=== PATIENT | female | born 1960 | race Caucasian/White ===

== ENCOUNTER 2022-01-24 23:21 | Observation (INO) | payer BC ==
[2022-01-25] MEDS ORDERED: Acetaminophen 650 MG Suppository PR PRN (01:11)
[2022-01-25] MEDS ORDERED: Acetaminophen 325 MG TAB PO PRN (01:11)
[2022-01-25] MEDS ORDERED: Ondansetron PF 4 MG/2 ML Vial IVP PRN (01:11)
[2022-01-25] MEDS ORDERED: Ondansetron ODT 4 MG TAB PO PRN (01:11)
[2022-01-25 02:05] LABS: Troponin I 0.255 ng/mL (< 0.028)
[2022-01-25] MEDS ORDERED: Enoxaparin Sodium 100 MG/ML SYRINGE ONE (02:31)
[2022-01-25] MEDS: Enoxaparin Sodium 100 MG/ML SYRINGE SC SCH ×2 (03:05→17:07)
[2022-01-25] MEDS ORDERED: Azithromycin 500 MG VIAL ONE (05:42)
[2022-01-25] MEDS: Azithromycin 500 MG in Sodium Chloride 0.9% 250 ML 250 ML IVPB SCH (05:49)
[2022-01-25 06:32] LABS: #Eosinphils 0.2 thou/uL (0.0-0.7); #Monocytes 0.9 thou/uL (0.11-0.59); #Neutrophils 7.1 thou/uL (1.40-6.50); %Basophils 0.2 % (0.0-1.0); %Eosinophils 1.5 % (0.0-10.0); %Lymphocytes 26.9 % (21.0-51.0); %Neutrophils 63.4 % (42.0-75.0); Hemoglobin 13.1 g/dL (12.0-16.0); Mean Corpuscular HGB CONC 32.6 g/dL (32.0-36.0); Mean Corpuscular Hemoglobin 30.2 pg (27.0-31.0); Mean Corpuscular Volume 92.8 fl (78.0-98.0); Mean Platelet Volume 6.9 fL (7.4-10.4); Platelet Count 268 10x3/uL (130-400); RBC Distribution Width 11.6 % (11.5-14.5); Red Blood Cell (RBC) Count 4.34 mill/uL (4.20-5.40); White Blood Cell (WBC) Count 11.2 10x3/uL (4.8-10.8)
[2022-01-25 06:44] LABS: Anion Gap 11 mmol/L (10-20); BUN (Urea Nitrogen) 22 mg/dL (9.8-20.1); Calc. Creatinine Clearance 129 mL/min (70-130); Calcium 8.7 mg/dL (7.8-10.44); Carbon Dioxide 24 mmol/L (22-29); Chloride 106 mmol/L (98-107); Estimated GFR 97; Glucose 96 mg/dL (70-105); Potassium 3.6 mmol/L (3.5-5.1); Sodium 137 mmol/L (136-145)
[2022-01-25 06:53] LABS: Troponin I 0.302 ng/mL (< 0.028)
[2022-01-25] MEDS ORDERED: Aspirin Chewable 81 MG TAB ONE (08:11)
[2022-01-25] MEDS ORDERED: methylPREDNISolone Sod Succ 40 MG VIAL ONE (08:11)
[2022-01-25] MEDS: methylPREDNISolone Sod Succ 40 MG VIAL IVP SCH (08:39)
[2022-01-25] MEDS: Aspirin 81 mg Enteric Coated Tablet PO SCH (08:39)
[2022-01-25 10:58] VITALS: BMI 34.4
[2022-01-25] MEDS ORDERED: FLU VACC QS2022-23(6MOS UP)/PF 60 MCG/0.5 ML SYRINGE IM ONE (12:00)
[2022-01-25] MEDS ORDERED: Potassium Chloride 20 MEQ TAB PO SCH (18:15)
[2022-01-25 18:44] LABS: Cardiac Risk 4.1 (Less than 4.5)
[2022-01-25] MEDS: Diltiazem HCl SR 60 mg Capsule PO SCH (21:28)
[2022-01-25] MEDS ORDERED: Melatonin 3 MG TAB PO PRN (23:51)
[2022-01-26 05:12] LABS: Anion Gap 14 mmol/L (10-20); BUN (Urea Nitrogen) 13 mg/dL (9.8-20.1); Calc. Creatinine Clearance 134 mL/min (70-130); Calcium 9.2 mg/dL (7.8-10.44); Carbon Dioxide 25 mmol/L (22-29); Chloride 104 mmol/L (98-107); Estimated GFR 99; Glucose 117 mg/dL (70-105); Potassium 4.3 mmol/L (3.5-5.1); Sodium 139 mmol/L (136-145)
[2022-01-26] MEDS: Azithromycin 500 MG in Sodium Chloride 0.9% 250 ML 250 ML IVPB SCH (06:16)
[2022-01-26] MEDS: Diltiazem HCl SR 60 mg Capsule PO SCH (08:59)
[2022-01-26] MEDS: Aspirin 81 mg Enteric Coated Tablet PO SCH (08:59)
[2022-01-26] MEDS: methylPREDNISolone Sod Succ 40 MG VIAL IVP SCH (08:59)
[2022-01-26 14:28] VITALS: BP 129/76; TEMP 98.3
== END 2022-01-26 14:30 | disposition home or self-care (01) ==
LOC: ERS 23:21 → 2NO 01-25 00:10 → ERHOLD 01-25 00:58 → 2NO 01-25 10:34
PROVIDERS: ADMIT Internal Medicine; ATTEND Internal Medicine
DX: I47.1 Supraventricular tachycardia (principal); J44.1 Chronic obstructive pulmonary disease with (acute) exacerbation; R07.89 Other chest pain; R77.8 Other specified abnormalities of plasma proteins; E87.6 Hypokalemia; E78.1 Pure hyperglyceridemia; Z79.52 Long term (current) use of systemic steroids; Z79.899 Other long term (current) drug therapy
CPT/HCPCS: 36415; 80048; 80061; 83735; 84484; 85025; 93306; 96372; 96374; 96375; 96376; G0378; J0456; J1650; J2920; J7050

== ENCOUNTER 2022-02-02 16:35 | Observation (INO) | payer BC ==
[2022-02-02] MEDS ORDERED: Ondansetron ODT 4 MG TAB PO PRN (18:29)
[2022-02-02] MEDS ORDERED: Acetaminophen 325 MG TAB PO PRN (18:29)
[2022-02-02 19:13] VITALS: BMI 33.8
[2022-02-02 20:09] LABS: Troponin I 0.459 ng/mL (< 0.028)
[2022-02-02] MEDS ORDERED: Albuterol Sulfate 2.5 mg/3 ml Neb NEB PRN (21:51)
[2022-02-02] MEDS ORDERED: Diltiazem HCl SR 60 mg Capsule PO SCH (22:30)
[2022-02-03 05:05] LABS: #Eosinphils 0.3 thou/uL (0.0-0.7); #Lymphocytes 3.2 thou/uL (1.20-3.40); #Monocytes 0.8 thou/uL (0.11-0.59); #Neutrophils 8.3 thou/uL (1.40-6.50); %Basophils 0.2 % (0.0-1.0); %Eosinophils 2.3 % (0.0-10.0); %Lymphocytes 25.3 % (21.0-51.0); %Monocytes 6.6 % (0.0-10.0); %Neutrophils 65.5 % (42.0-75.0); Hemoglobin 14.9 g/dL (12.0-16.0); Mean Corpuscular HGB CONC 32.2 g/dL (32.0-36.0); Mean Corpuscular Hemoglobin 30.6 pg (27.0-31.0); Mean Corpuscular Volume 94.9 fl (78.0-98.0); Mean Platelet Volume 6.8 fL (7.4-10.4); Platelet Count 251 10x3/uL (130-400); RBC Distribution Width 11.7 % (11.5-14.5); Red Blood Cell (RBC) Count 4.88 mill/uL (4.20-5.40); White Blood Cell (WBC) Count 12.7 10x3/uL (4.8-10.8)
[2022-02-03 05:25] LABS: ALT (SGPT) 21 U/L (8-55); AST (SGOT) 13 U/L (5-34); Albumin 3.7 g/dL (3.5-5.0); Alkaline Phosphatase 110 U/L (40-110); Anion Gap 11 mmol/L (10-20); BUN (Urea Nitrogen) 23 mg/dL (9.8-20.1); Bilirubin, Total 0.3 mg/dL (0.2-1.2); Calc. Creatinine Clearance 123 mL/min (70-130); Calcium 8.7 mg/dL (7.8-10.44); Carbon Dioxide 22 mmol/L (22-29); Chloride 107 mmol/L (98-107); Estimated GFR 91; Globulin 2.5 g/dL (2.4-3.5); Glucose 129 mg/dL (70-105); Potassium 4.2 mmol/L (3.5-5.1); Protein, Total 6.2 g/dL (6.0-8.3); Sodium 136 mmol/L (136-145)
[2022-02-03] MEDS ORDERED: Mometasone 100 MCG/PUFF (1 INHALER) INH SCH (06:30)
[2022-02-03] MEDS: Mometasone 200 MCG/Formoterol 5 MCG 120 PUFF INHALER INH SCH ×2 (07:56→18:41)
[2022-02-03] MEDS ORDERED: FLU VACC QS2022-23(6MOS UP)/PF 60 MCG/0.5 ML SYRINGE IM ONE (09:00)
[2022-02-03] MEDS ORDERED: Diltiazem HCl SR 60 mg Capsule PO SCH ×2 (09:00)
[2022-02-03 09:56] LABS: Magnesium 2.1 mg/dL (1.6-2.6)
[2022-02-03] MEDS: Acyclovir 400 mg Tablet PO SCH (10:31)
[2022-02-03] MEDS: Aspirin 81 mg Enteric Coated Tablet PO SCH (10:31)
[2022-02-03] MEDS: Cholecalciferol 1,000 UNITS (25 MCG) TAB PO SCH (10:32)
[2022-02-03] MEDS: Atorvastatin Calcium 20 MG TAB PO SCH (10:32)
[2022-02-03] MEDS: Montelukast Sodium 10 mg Tablet PO SCH (10:33)
[2022-02-04 05:25] LABS: #Basophils 0.1 thou/uL (0.0-0.2); #Eosinphils 0.3 thou/uL (0.0-0.7); #Lymphocytes 2.7 thou/uL (1.20-3.40); #Monocytes 0.9 thou/uL (0.11-0.59); #Neutrophils 8.1 thou/uL (1.40-6.50); %Basophils 0.4 % (0.0-1.0); %Eosinophils 2.2 % (0.0-10.0); %Lymphocytes 22.1 % (21.0-51.0); %Monocytes 7.8 % (0.0-10.0); %Neutrophils 67.5 % (42.0-75.0); Hemoglobin 15.5 g/dL (12.0-16.0); Mean Corpuscular HGB CONC 33.2 g/dL (32.0-36.0); Mean Corpuscular Hemoglobin 31.2 pg (27.0-31.0); Mean Corpuscular Volume 93.8 fl (78.0-98.0); Mean Platelet Volume 6.8 fL (7.4-10.4); Platelet Count 229 10x3/uL (130-400); RBC Distribution Width 11.7 % (11.5-14.5); Red Blood Cell (RBC) Count 4.98 mill/uL (4.20-5.40)
[2022-02-04 05:53] LABS: ALT (SGPT) 23 U/L (8-55); AST (SGOT) 17 U/L (5-34); Alkaline Phosphatase 118 U/L (40-110); Anion Gap 10 mmol/L (10-20); BUN (Urea Nitrogen) 17 mg/dL (9.8-20.1); Bilirubin, Total 0.4 mg/dL (0.2-1.2); Calc. Creatinine Clearance 132 mL/min (70-130); Calcium 9.2 mg/dL (7.8-10.44); Carbon Dioxide 24 mmol/L (22-29); Chloride 106 mmol/L (98-107); Estimated GFR 99; Globulin 2.8 g/dL (2.4-3.5); Glucose 109 mg/dL (70-105); Potassium 4.4 mmol/L (3.5-5.1); Protein, Total 6.8 g/dL (6.0-8.3); Sodium 136 mmol/L (136-145)
[2022-02-04] MEDS: Mometasone/Formoterol 200/5 60 PUFF INH SCH ×2 (06:51→20:04)
[2022-02-04] MEDS: Montelukast Sodium 10 mg Tablet PO SCH (09:29)
[2022-02-04] MEDS: Cholecalciferol 1,000 UNITS (25 MCG) TAB PO SCH (09:29)
[2022-02-04] MEDS: Atorvastatin Calcium 20 MG TAB PO SCH (09:29)
[2022-02-04] MEDS: Acyclovir 400 mg Tablet PO SCH (09:29)
[2022-02-04] MEDS: Aspirin 81 mg Enteric Coated Tablet PO SCH (09:29)
[2022-02-04] MEDS ORDERED: FENTANYL 50 MCG/ML 1 ML VIAL ONE ×3 (12:15→18:18)
[2022-02-04] MEDS ORDERED: Midazolam HCl 2 mg/2 ml Vial ONE ×2 (12:15→18:18)
[2022-02-04] MEDS ORDERED: Lidocaine 1% (PF) 30 ML VIAL ONE (12:15)
[2022-02-04] MEDS ORDERED: Isoproterenol 0.2 MG/1 ML AMP ONE (12:15)
[2022-02-04] MEDS ORDERED: Heparin 10,000 UNITS/ 10 ML VIAL ONE (12:15)
[2022-02-04] MEDS ORDERED: Acetaminophen/Codeine 30-300mg Tablet PO PRN ×2 (23:45)
[2022-02-05] MEDS: Mometasone/Formoterol 200/5 60 PUFF INH SCH (08:00)
[2022-02-05 08:22] VITALS: BP 108/75; TEMP 97.8
[2022-02-05] MEDS: Cholecalciferol 1,000 UNITS (25 MCG) TAB PO SCH (09:08)
[2022-02-05] MEDS: Atorvastatin Calcium 20 MG TAB PO SCH (09:08)
[2022-02-05] MEDS: Aspirin 81 mg Enteric Coated Tablet PO SCH (09:09)
[2022-02-05] MEDS: Montelukast Sodium 10 mg Tablet PO SCH (09:09)
[2022-02-05] MEDS: Acyclovir 400 mg Tablet PO SCH (09:58)
== END 2022-02-05 10:44 | disposition home or self-care (01) ==
LOC: NEURO 18:05
PROVIDERS: ADMIT Family Medicine; ATTEND Family Medicine
PROC: 02583ZZ Destruction of Conduction Mechanism, Percutaneous Approach (ICD-10-PCS; principal; 2022-02-04)
PROC: 02K83ZZ Map Conduction Mechanism, Percutaneous Approach (ICD-10-PCS; 2022-02-04)
PROC: 4A023FZ Measurement of Cardiac Rhythm, Percutaneous Approach (ICD-10-PCS; 2022-02-04)
PROC: 4A0234Z Measurement of Cardiac Electrical Activity, Percutaneous Approach (ICD-10-PCS; 2022-02-04)
DX: I47.1 Supraventricular tachycardia (principal); I21.A1 Myocardial infarction type 2; J45.901 Unspecified asthma with (acute) exacerbation; J42 Unspecified chronic bronchitis; E78.5 Hyperlipidemia, unspecified; R03.0 Elevated blood-pressure reading, without diagnosis of hypertension; I49.3 Ventricular premature depolarization; Z79.82 Long term (current) use of aspirin; Z79.899 Other long term (current) drug therapy
CPT/HCPCS: 36415; 80053; 83735; 84100; 85025; 90471; 90686; 93005; 93010; 93623; 93653; 96372; 99152; 99153; 99156; 99157; C1730; C1732; C1760; C1769; C1894; G0008; G0378; J1644; J1650; J2001; J2250; J3010

== ENCOUNTER 2023-03-23 09:32 | Outpatient (CLI) | payer BC | END 2023-03-23 09:33 | disposition home or self-care (01) | LOC: RAD 09:32 | PROVIDERS: ATTEND Internal Medicine | DX: R06.00 Dyspnea, unspecified (principal) | CPT/HCPCS: 71046 ==